=== PATIENT | female | born 1970 | race Caucasian/White ===

== ENCOUNTER → 2017-04-01 | Outpatient (CLI) | payer OTHER ==
--- NOTE | 2017-04-01 17:11 | RADIOLOGY REPORT (SQ) ---
EXAM DESCRIPTION: MRI LT LOWER EXTREMITY COMBO COMPLETED DATE/TIME: 04/01/2017 4:44 pm REASON FOR STUDY: LEFT THIGH PAIN COMPARISON: No previous imaging for comparison TECHNIQUE: Axial coronal and sagittal T1 pre and postcontrast imaging, and fat-sat T2 imaging of the left thigh performed. Patient was injected with 20 mL of ProHance gadolinium. Estimated GFR greater than 60 LIMITATIONS: None. FINDINGS: There is very mild trochanteric bursitis, with trace fluid in the trochanteric bursa and m inimal edema at the gluteal attachments to the greater trochanter left femur. Remainder of the limit ed view of the left hip and hemipelvis is unremarkable Benign appearing red marrow in the mid diaphysis of the left femur. No MR findings worrisome for occ ult fracture or stress fracture. No discrete left side mass in the soft tissues. No abnormal thigh muscle soft tissue enhancement No gross pelvic mass or adenopathy. No inguinal mass or adenopathy IMPRESSION: Trochanteric bursitis. Consider MRI of the lumbar spine for further evaluation if there is clinical suspicion of a L2 or L3 radiculopathy TECHNICAL DOCUMENTATION: JOB ID: [id number] [employer]- All Rights Reserved
== END ==
LOC: RAD 15:25
PROVIDERS: ATTEND Family Medicine
DX: M79.652 Pain in left thigh (principal); M70.62 Trochanteric bursitis, left hip
CPT/HCPCS: 82565; 73720; A9576

== ENCOUNTER 2017-08-03 10:16 | Emergency (ER) | payer OTHER ==
[2017-08-03 10:28] VITALS: BP 122/80
--- NOTE | 2017-08-03 11:08 | ER Document Report ---
ED Cardiac - General Chief Complaint: Palpitations Stated Complaint: PALPATATIONS Time Seen by Provider: 08/03/17 10:45 Mode of Arrival: Ambulatory Information source: Patient Notes: Patient states she has been having palpitations since yesterday. She states she will feel her heart skip a beat and she has some shortness of breath when it happens. She states she has never had any type of palpitations in the past. No known history of cardiac disease. She did have a normal stress test several years ago. No significant chest pain. She has no new medications. She denies any type of poow-yar-kqtuypd medications or energy drinks. She does not know anything that makes the symptoms better or worse. There is no radiation of symptoms. They have been mild. They are intermittent and lasting a few seconds. Patient did state that when she arrived at the hospital she received a phone call stating that she had an appointment at 11:[address] Hermosillo , the [facility]. She relayed this information to me at approximately 10:50 AM. I did call and speak with Dr. Hermosillo office in the instructed me to send the patient straight to his office. TRAVEL OUTSIDE OF THE [place] IN LAST 30 DAYS: No - Related Data Allergies/Adverse Reactions: No Known Allergies Allergy (Unverified 08/03/17 10:40) Past Medical History - General Information source: Patient - Social History Smoking Status: Never Smoker Chew tobacco use (# tins/day): No Frequency of alcohol use: Social Drug Abuse: None Family History: Reviewed & Not Pertinent Patient has suicidal ideation: No Patient has homicidal ideation: No Renal/ Medical History: Denies: Hx Peritoneal Dialysis Review of Systems - Review of Systems Constitutional: denies: Chills, Fever Cardiovascular: Palpitations. denies: Chest pain Respiratory: Short of breath. denies: Cough Physical Exam - Vital signs Vitals: Temp Pulse Resp BP Pulse Ox 98.3 F 71 18 122/80 100 08/03/17 10:27 08/03/17 10:27 08/03/17 10:27 08/03/17 10:27 08/03/17 10:27 Interpretation: Normal - General General appearance: Appears well, Alert In distress: None - HEENT Head: Normocephalic, Atraumatic Eyes: Normal Pupils: PERRL - Respiratory Respiratory status: No respiratory distress Chest status: Nontender Breath sounds: Normal Chest palpation: Normal - Cardiovascular Rhythm: Regular Heart sounds: Normal auscultation Murmur: No - Extremities General upper extremity: Normal inspection, Nontender, Normal color, Normal ROM , Normal temperature General lower extremity: Normal inspection, Nontender, Normal color, Normal ROM , Normal temperature, Normal weight bearing. No: Arlene's sign - Neurological Neuro grossly intact: Yes Cognition: Normal Marques Coma Scale Eye Opening: Spontaneous Marques Coma Scale Verbal: Oriented Marques Coma Scale Motor: Obeys Commands [place] Coma Scale Total: 15 Speech: Normal - Psychological Associated symptoms: Normal affect, Normal mood - Skin Skin Temperature: Warm Skin Moisture: Dry Skin Color: Normal Course - Vital Signs Vital signs: Temp Pulse Resp BP Pulse Ox 98.3 F 71 18 122/80 100 08/03/17 10:27 08/03/17 10:27 08/03/17 10:27 08/03/17 10:27 08/03/17 10:27 - EKG Interpretation by Mi EKG shows normal: Sinus rhythm Rate: Normal Rhythm: NSR [place]/QRS: No: Right axis deviation, Left axis deviation Discharge - Discharge Clinical Impression: Palpitations Condition: Stable Disposition: HOME, SELF-CARE Instructions: Palpitations (Irregular or Rapid Heartrate) ([facility]) Additional Instructions: Please go straight to Dr. Hermosillo office Referrals: CLARISSA HERMOSILLO MD [NO LOCAL MD] - Follow up as needed
--- NOTE | 2017-08-03 13:28 | EKG REPORT ---
SEVERITY:- NORMAL ECG - SINUS RHYTHM : Confirmed by: Kishan Shane MD 03-Aug-2017 13:27:42
== END 2017-08-03 11:09 | disposition home or self-care (01) ==
LOC: ER 10:16
DX: R00.2 Palpitations (principal); R06.02 Shortness of breath
CPT/HCPCS: 93005; 93010; 99284

== ENCOUNTER 2017-11-09 07:06 | Day surgery (SDC) | payer OTHER ==
[2017-10-23 11:07] LABS: HEMATOCRIT 40.7 % (36.0-47.0); HEMOGLOBIN 13.9 g/dL (12.0-15.5); MEAN CORPUSCULAR HEMOGLOBIN 27.6 pg (27.0-33.4); MEAN CORPUSCULAR HGB CONC 34.1 g/dL (32.0-36.0); MEAN CORPUSCULAR VOLUME 81 fl (80-97); PLATELET COUNT 349 10^3/uL (150-450); RED BLOOD COUNT 5.02 10^6/uL (3.72-5.28); RED CELL DISTRIBUTION WIDTH 14.3 % (11.5-14.0); WHITE BLOOD COUNT 9.3 10^3/uL (4.0-10.5)
[2017-10-23 11:19] LABS: APPEARANCE,URINE CLEAR; BILIRUBIN,URINE NEGATIVE (NEGATIVE); COLOR,URINE YELLOW; GLUCOSE, URINE NEGATIVE (NEGATIVE); KETONES,URINE NEGATIVE (NEGATIVE); LEUKOCYTE ESTERASE,URINE NEGATIVE (NEGATIVE); NITRITE,URINE NEGATIVE (NEGATIVE); PROTEIN,URINE NEGATIVE (NEGATIVE); URINE SPECIFIC GRAVITY 1.024; UROBILINOGEN,URINE NEGATIVE mg/dL (<2.0)
[2017-10-23 11:38] LABS: ALANINE AMINOTRANSFERASE 24 U/L (9-52); ALKALINE PHOSPHATASE 93 U/L (38-126); ANION GAP 13 (5-19); ASPARTATE AMINO TRANSFERASE 15 U/L (14-36); BILIRUBIN,DIRECT 0.3 mg/dL (0.0-0.4); BILIRUBIN,TOTAL 0.5 mg/dL (0.2-1.3); BLOOD UREA NITROGEN 18 mg/dL (7-20); CALCIUM 10.3 mg/dL (8.4-10.2); CARBON DIOXIDE 28 mmol/L (22-30); CHLORIDE 101 mmol/L (98-107); GLUCOSE 86 mg/dL (75-110); POTASSIUM 4.1 mmol/L (3.6-5.0); SODIUM 142.1 mmol/L (137-145); TOTAL PROTEIN 6.9 g/dL (6.3-8.2)
--- NOTE | 2017-10-23 20:57 | EKG REPORT ---
SEVERITY:- NORMAL ECG - SINUS RHYTHM : Confirmed by: Jey Alcazar 23-Oct-2017 20:56:50
[~2017-11-09 07:06] MED LIST: CEFAZOLIN 2 GM/D5W RTU 2 GM/50 ML RTUPB IV PRN; LACTATED RINGERS 1000 ML IV PRN; LIDOCAINE 0.5% INJ-PF (5 MG/ML) 50 ML SDV SUBCUT PRN
[2017-11-09] MEDS ORDERED: LIDOCAINE 0.5%/EPINEPHRINE INJ 50 ML VIAL ONE (07:15)
[2017-11-09] MEDS ORDERED: MIDAZOLAM 2 MG/2 ML INJ ONE (08:37)
[2017-11-09] MEDS ORDERED: FENTANYL CITRATE INJ/PF 250 MCG/5 ML AMPULE ONE (08:37)
[2017-11-09] MEDS ORDERED: ACETAMINOPHEN 1,000 MG/100 ML RTUPB IV ONE (08:37)
[2017-11-09] MEDS ORDERED: MORPHINE SULFATE 10 MG/ML INJ ONE (08:38)
[2017-11-09] MEDS ORDERED: PROPOFOL INJ 200 MG/20 ML VIAL IV ONE (08:38)
[2017-11-09] MEDS ORDERED: FAMOTIDINE INJ/PF 20 MG/2 ML SDV IV ONE ×2 (08:47→08:48)
[2017-11-09] MEDS ORDERED: PROMETHAZINE HCL INJ 25 MG/1 ML VIAL IV PRN ×2 (09:40→10:00)
[2017-11-09] MEDS ORDERED: MEPERIDINE HCL/PF INJ 25 MG/1 ML DISP.SYRIN IV PRN (09:40)
[2017-11-09] MEDS ORDERED: FENTANYL CITRATE INJ/PF 100 MCG/2 ML AMPUL IV PRN ×2 (09:40)
[2017-11-09] MEDS ORDERED: DIPHENHYDRAMINE HCL 50 MG/ML VIAL IV PRN (09:40)
[2017-11-09] MEDS ORDERED: HYDROMORPHONE HCL INJ/PF 2 MG/ML AMPULE IV PRN (10:00)
[2017-11-09] MEDS ORDERED: OXYCODONE-ACETAMINOPHEN 5-325 MG TABLET PO PRN ×2 (10:00)
[2017-11-09] MEDS ORDERED: SIMETHICONE 80 MG TAB.CHEW PO PRN (10:00)
[2017-11-09] MEDS ORDERED: ACETAMINOPHEN 1,000 MG/100 ML RTUPB IV PRN (10:00)
[2017-11-09] MEDS ORDERED: ACETAMINOPHEN 325 MG TABLET PO PRN (10:00)
[2017-11-09] MEDS ORDERED: RINGERS SOLUTION,LACTATED 1,000 ML IV PRN (10:00)
--- NOTE | 2017-11-09 10:11 | Operative Report ---
Operative Report DATE OF SURGERY: 11/09/17 PREOPERATIVE DIAGNOSIS: Uterine prolapse POSTOPERATIVE DIAGNOSIS: Same OPERATION: Total vaginal hysterectomy SURGEON: KENNETH HATCH 1ST INVESTMENT ADVISOR: CHIQUI DOWELL ANESTHESIA: GA TISSUE REMOVED OR ALTERED: Uterus cervix COMPLICATIONS: None ESTIMATED BLOOD LOSS: 125 cc PROCEDURE: Patient was taken the OR and placed in supine position. General anesthesia was induced. She is placed in dorsolithotomy position using candycane stirrups. Her perineum and vagina were prepared and draped in sterile fashion. Sweeney catheter was placed for drainage of the bladder during the case. A weighted speculum was placed in the cervix was grasped with tenaculum. The cervix was then infiltrated with a solution of lidocaine with epinephrine. A circumferential incision was made around the cervix and the vaginal skin reflected off the cervix using sharp and blunt dissection. The posterior anterior cul-de-sac was palpated and then incised with curved Moyer scissors. A long weighted speculum was placed through the posterior cul-de-sac incision. The uterosacral ligaments bilaterally were clamped with curved Ashley clamps cut and ligated with 0 Vicryl suture. Using sharp and blunt dissection the anteriorly the bladder was off the cervix and the anterior cul-de-sac was entered with Metzenbaum scissors. A Emmy retractor was placed through this incision and the bowel could be easily seen. There is no evidence of injury to the bladder. Next the cardinal ligaments were clamped cauterized and ligated with the LigaSure device bilaterally. The uterine arteries were clamped cauterized and ligated bilaterally with the LigaSure device. This was done staying very close to the uterine cervix. The broad ligament likewise was clamped ligated and divided using the LigaSure device. Upon reaching the utero- ovarian pedicles the tissue was clamped with curved Elida bilaterally. It was cut and then the pedicle doubly ligated first with a free tie of 0 Vicryl followed by transfixation suture of 0 Vicryl. The uterus was passed off the field. The pedicles were inspected for bleeding and hemostasis was noted. Next the peritoneum was closed with pursestring suture of 2-0 chromic. The vaginal angles were placed using 0 chromic incorporating anterior vaginal mucosa uterosacral ligament and posterior vaginal mucosa bilaterally. Vaginal cuff was closed with a running locking suture of 0 Vicryl. The pelvis was irrigated and suctioned free of fluid hemostasis was good. The patient was placed back in supine position extubated and taken to recovery in stable condition.
[2017-11-09] MEDS ORDERED: FENTANYL CITRATE INJ/PF 100 MCG/2 ML AMPUL ONE (10:26)
[2017-11-09] MEDS: FENTANYL CITRATE INJ/PF 100 MCG/2 ML AMPUL IV PRN ×2 (10:35→10:55)
[2017-11-09] MEDS ORDERED: VECURONIUM BROMIDE INJ 10 MG VIAL IV ONE (12:05)
[2017-11-09] MEDS ORDERED: ONDANSETRON HCL INJ/PF 4 MG/2 ML SDV ONE (12:05)
[2017-11-09] MEDS ORDERED: LIDOCAINE 2% INJ-PF (20 MG/ML) 2 ML AMPUL ONE (12:05)
[2017-11-09] MEDS ORDERED: DEXAMETHASONE SOD PHOSPHATE INJ 4 MG/1 ML VIAL ONE (12:05)
[2017-11-09] MEDS ORDERED: SUCCINYLCHOLINE CHLORIDE INJ 200 MG/10 ML VIAL ONE (12:05)
[2017-11-09] MEDS ORDERED: NEOSTIGMINE METHYLSULFATE 10 MG/10 ML VIAL ONE (12:05)
[2017-11-09] MEDS: IBUPROFEN 800 MG TABLET PO SCH ×2 (12:50→18:25)
[2017-11-09 15:00] LABS: HEMATOCRIT 38.1 % (36.0-47.0); HEMOGLOBIN 12.7 g/dL (12.0-15.5); MEAN CORPUSCULAR HEMOGLOBIN 27.3 pg (27.0-33.4); MEAN CORPUSCULAR HGB CONC 33.3 g/dL (32.0-36.0); MEAN CORPUSCULAR VOLUME 82 fl (80-97); PLATELET COUNT 284 10^3/uL (150-450); RED BLOOD COUNT 4.64 10^6/uL (3.72-5.28); RED CELL DISTRIBUTION WIDTH 14.3 % (11.5-14.0); WHITE BLOOD COUNT 14.3 10^3/uL (4.0-10.5)
[2017-11-09] MEDS: DOCUSATE SODIUM 100 MG CAPSULE PO SCH (18:25)
[2017-11-10] MEDS: IBUPROFEN 800 MG TABLET PO SCH ×2 (05:08)
[2017-11-10 06:39] LABS: HEMATOCRIT 35.7 % (36.0-47.0); MEAN CORPUSCULAR HEMOGLOBIN 27.6 pg (27.0-33.4); MEAN CORPUSCULAR HGB CONC 33.7 g/dL (32.0-36.0); MEAN CORPUSCULAR VOLUME 82 fl (80-97); PLATELET COUNT 300 10^3/uL (150-450); RED BLOOD COUNT 4.35 10^6/uL (3.72-5.28); RED CELL DISTRIBUTION WIDTH 14.5 % (11.5-14.0)
[2017-11-10 09:17] VITALS: BP 113/80
[2017-11-10] MEDS: DOCUSATE SODIUM 100 MG CAPSULE PO SCH (09:55)
[2017-11-10] MEDS ORDERED: DILTIAZEM HCL 240 MG CAPSULE.CR PO SCH (10:00)
[2017-11-10] MEDS ORDERED: LOSARTAN POTASSIUM 50 MG TABLET PO SCH (10:00)
--- NOTE | 2017-11-10 11:14 | PDOC DISCHARGE SUMMARY ---
General - Admit/Disc Date/PCP Admission Date/Primary Care Provider: YRN MAI MD Discharge Date: 11/10/17 - Discharge Diagnosis (1) Uterine prolapse Is this a current diagnosis for this admission?: Yes - Additional Information Home Medications: Diltiazem HCl [Cardizem Cd 240 mg Capsule.cr] 1 tab PO DAILY 10/23/17 Famotidine [Pepcid 40 mg Tablet] 1 tab PO BID 10/23/17 Hydrochlorothiazide 1 tab PO DAILY 10/23/17 Ibuprofen 1 tab PO BID 10/23/17 Losartan Potassium 1 tab PO DAILY 10/23/17 History of Present Illness Patient complains of: Uterine prolapse. History of Present Illness: MIKEY ATKINSON is a 47 year old female She presents with uterine prolapse and heavy menses. The cervix prolapses to the introitus. Hospital Course Hospital Course: She was admitted and underwent a vaginal hysterectomy. Please see the op report. On the night of surgery she was doing well and advanced to a regular diet and her nassar was removed. The next day she was doing well and was ready to go home. Physical Exam - Physical Exam Vital Signs: Temp Pulse Resp BP Pulse Ox 98.0 F 62 17 113/80 98 11/10/17 08:00 11/10/17 08:00 11/10/17 08:00 11/10/17 08:00 11/10/17 08:00 Intake & Output 11/09/17 11/10/17 11/11/17 06:59 06:59 06:59 Intake Total 2750 Output Total 1210 Balance 1540 Weight 108.5 kg General appearance: PRESENT: no acute distress, well-developed, well-nourished Head exam: PRESENT: atraumatic, normocephalic GI/Abdominal exam: PRESENT: normal bowel sounds, soft. ABSENT: distended, guarding, mass, organolmegaly, rebound, tenderness Result Laboratory Results: 11/10/17 06:01 11/09/17 07:31 11/09/17 11/10/17 14:45 06:01 WBC 14.3 H 12.0 H RBC 4.64 4.35 Hgb 12.7 12.0 Hct 38.1 35.7 L MCV 82 82 MCH 27.3 27.6 MCHC 33.3 33.7 RDW 14.3 H 14.5 H Plt Count 284 300 Impressions: Doing well post op day number one. Plan Discharge Plan: Home to rest with percocet and motrin. Pelvic rest, no heavy lifting. No driving for 2 weeks. Followup next week. Time Spent: Less than 30 Minutes
== END 2017-11-10 11:57 | disposition home or self-care (01) ==
LOC: OROUT 07:06 → 2S 12:06 → OROUT 11-10 11:57
PROVIDERS: ATTEND Obstetrics & Gynecology
DX: N81.4 Uterovaginal prolapse, unspecified (principal); I10 Essential (primary) hypertension; R23.4 Changes in skin texture; I73.00 Raynaud's syndrome without gangrene; Z98.84 Bariatric surgery status; Z79.899 Other long term (current) drug therapy
CPT/HCPCS: 93005; 86900; 86901; 36415 ×3; 86850; 84132; 84703; 85027 ×2; 80053; 81001; 88305 ×2; 94799; 93010; 58260; J2250; J1100; J3010 ×2; J3490 ×3; J1170; J0330; J2405; J7120; J2704; S0028; J0690; J0131; 944; J2270